=== PATIENT | female | born 1975 | race Two or more races ===

== ENCOUNTER 2017-07-24 11:42 | Emergency (ER) | payer MEDICAID ==
[~2017-07-24] VITALS: Ht 162.6 cm; Wt 84.0 kg
[~2017-07-24 11:42] MED LIST: ESOM20CA; FLUO10CA13; HYDR-3240 PO; NITR100C56 PO; ONDA4TAB10 PO
[2017-07-24 13:38] LABS: MICROSCOPIC INDICATED
[2017-07-24 13:41] LABS: CULTURE INDICATED? YES
[2017-07-24] MEDS ORDERED: CEFTRIAXONE 1,000 MG IM ONE (14:30)
[2017-07-24 14:56] VITALS: BP 139/85
== END 2017-07-24 14:59 | disposition home or self-care (01) ==
LOC: ED 13:35
DX: N30.91 Cystitis, unspecified with hematuria (principal); N12 Tubulo-interstitial nephritis, not specified as acute or chronic; K58.9 Irritable bowel syndrome, unspecified
CPT/HCPCS: 36415; 81001; 84703; 87077; 87086; 87186; 96372; 99284; J0696

== ENCOUNTER → 2018-05-13 | Outpatient (CLI) | payer MEDICAID | END | disposition home or self-care (01) | LOC: RAD 11:33 | PROVIDERS: ATTEND Internal Medicine Gastroenterology | DX: K59.00 Constipation, unspecified (principal); K58.9 Irritable bowel syndrome, unspecified; R14.0 Abdominal distension (gaseous); R11.0 Nausea; F41.9 Anxiety disorder, unspecified; Z90.49 Acquired absence of other specified parts of digestive tract | CPT/HCPCS: 74018 ==

== ENCOUNTER 2019-01-05 23:15 | Emergency (ER) | payer MEDICAID ==
[~2019-01-05] VITALS: Ht 162.6 cm; Wt 82.8 kg
[2019-01-05 23:24] VITALS: BP 141/85
--- NOTE | 2019-01-05 23:32 | NUR ---
FEELING LIGHTHEADED AND CONSTIPATED X 24 HOURS. HX IBS. PT STATED, WHEN TRYING TO HAVE BM, GET COLD SWEATS AND ALMOST PASSES OUT. C/O DIFFUSE ABD PAIN
[2019-01-06 00:04] LABS: MICROSCOPIC NOT IND
[2019-01-06 00:07] LABS: CULTURE INDICATED? NO
[2019-01-06 00:11] LABS: BASOPHILS # (AUTO) 0.04 x10^3/uL (0-0.1); BASOPHILS % (AUTO) 0 % (0-1); EOSINOPHILS # (AUTO) 0.13 x10^3/uL (0-0.4); EOSINOPHILS % (AUTO) 1 % (1-7); LYMPHOCYTES # (AUTO) 2.32 x10^3/uL (1-3.4); LYMPHOCYTES % (AUTO) 22 % (22-44); MD NO; MEAN CORPUSCULAR HEMOGLOBIN 29.5 pg (27.0-34.8); MEAN CORPUSCULAR HGB CONC 33.1 g/dL (32.4-35.8); MEAN CORPUSCULAR VOLUME 89.2 fL (80-100); MEAN PLATELET VOLUME 8.2 fL (7.4-10.4); MONOCYTES # (AUTO) 0.88 x10^3/uL (0.2-0.8); MONOCYTES % (AUTO) 9 % (2-9); NEUTROPHILS # (AUTO) 7.05 x10^3/uL (1.8-6.8); NEUTROPHILS % (AUTO) 68 % (42-75); PLATELET COUNT 345 x10^3/uL (130-400); RED BLOOD COUNT 4.59 x10^6/uL (3.82-5.3); RED CELL DISTRIBUTION WIDTH 14.7 % (9.6-15.2)
[2019-01-06 00:23] LABS: ALANINE AMINOTRANSFERASE 24 U/L (12-78); ALBUMIN 3.6 g/dL (3.4-5.0); ANION GAP 7 mmol/L (5-15); CALCIUM 9.2 mg/dL (8.5-10.1); CHLORIDE 105 mmol/L (98-107)
[2019-01-06 00:28] LABS: ALKALINE PHOSPHATASE 88 U/L (45-117); BILIRUBIN,TOTAL 0.2 mg/dL (0.2-1.0); TOTAL PROTEIN 7.4 g/dL (6.4-8.2)
--- NOTE | 2019-01-06 01:00 | NUR ---
TASK RN: DC EDUCATION PROVIDED, PT DEMONSTRATES UNDERSTANDING. PT AMBULATED STEADILY TO DC WITH RN AND SO.
== END 2019-01-06 01:03 | disposition home or self-care (01) ==
LOC: ED 01-06 01:00
DX: K58.9 Irritable bowel syndrome, unspecified (principal); K08.89 Other specified disorders of teeth and supporting structures; R10.84 Generalized abdominal pain; Z90.49 Acquired absence of other specified parts of digestive tract; F17.200 Nicotine dependence, unspecified, uncomplicated
CPT/HCPCS: 36415; 74021; 80053; 81003; 83690; 84703; 85025; 99284